=== PATIENT | male | born 1960 | race Caucasian/White ===

== ENCOUNTER 2017-01-20 03:02 | Inpatient (IN) | payer OTHER ==
[~2017-01-20] VITALS: Ht 175.3 cm; Wt 89.7 kg
[2017-01-20 03:55] LABS: EOSINOPHIL (%) 0.4 % (0-5); HEMATOCRIT 50.3 % (38.0-50.0); IMMATURE GRANULOCYTE (%) 0.4 % (0.0-0.7); INSTRUMENT ABS NEUTROPHIL CT 7.2 K/uL; LYMPHOCYTE COUNT 1.5 K/uL (1.0-2.8); MCH 31.1 PG (29.0-34.0); MCHC 34.6 G/DL (30.0-36.0); MONOCYTE (%) 5.5 % (3-12); MONOCYTE COUNT 0.5 K/uL (0-0.8); NEUTROPHIL (%) 77.7 % (45-76); NEUTROPHIL COUNT 7.2 K/uL (1.8-6.4); PLATELET COUNT 235 K/uL (156-360); RBC DIS.WIDTH-CV 13.1 % (11.8-14.6); RBC DIS.WIDTH-SD 43.8 % (39-53); RED BLOOD COUNT 5.59 M/uL (4.00-5.50); WHITE BLOOD COUNT 9.3 K/uL (4.1-10.2)
[2017-01-20 04:05] LABS: CHLORIDE 101 mEq/L (99-109); POTASSIUM 3.8 mEq/L (3.7-5.4); SODIUM 141 mEq/L (136-147)
[2017-01-20 04:08] LABS: GLUCOSE 149 mg/dL (70-99)
[2017-01-20 04:09] LABS: ANION GAP 11 MEQ/L (2-14)
[2017-01-20 04:10] LABS: TOTAL BILIRUBIN 2.2 mg/dL (0.0-1.0)
[2017-01-20 04:11] LABS: ALKALINE PHOSPHATASE 149 IU/L (3-129)
[2017-01-20 04:12] LABS: GFR ESTIMATE (CALCULATED) > 59 mL/min/
[2017-01-20 04:13] LABS: UREA NITROGEN (BUN) 17 mg/dL (9-23)
[2017-01-20 04:15] LABS: LIPASE 21 U/L (1.0-51.0); TROP-I INTERPRETATION NEGATIVE; TROPONIN-I < 0.01 ng/mL (0.0-0.30)
[2017-01-20 07:41] VITALS: BP 130/75
[2017-01-20] MEDS ORDERED: CLONIDINE HCL0.2 MG PO (11:03)
[2017-01-20] MEDS ORDERED: ZESTRIL40 MG PO (11:04)
[2017-01-20] MEDS ORDERED: LOPRESSOR50 MG PO (11:04)
[2017-01-20] MEDS ORDERED: GABAPENTIN800 MG PO (11:05)
[2017-01-20] MEDS ORDERED: HYDROCHLOROTHIA25 MG PO (11:05)
[2017-01-20] MEDS ORDERED: SERTRALINE HCL50 MG PO (11:06)
[2017-01-20] MEDS ORDERED: CYMBALTA60 MG PO (11:06)
[2017-01-20] MEDS ORDERED: GABAPENTIN100 MG PO (11:06)
[2017-01-20] MEDS ORDERED: ATORVASTATIN CA40 MG PO (11:06)
[2017-01-20 11:48] VITALS: BP 140/88
[2017-01-20 12:23] LABS: ADD MIUA? NO; BILIRUBIN NEGATIVE; BLOOD NEGATIVE; COLOR YELLOW ((YELLOW)); GLUCOSE (STRIP) NEGATIVE; KETONES NEGATIVE; LEUKOCYTES NEGATIVE; NITRITE NEGATIVE; PROTEIN (STRIP) NEGATIVE; SPECIFIC GRAVITY 1.023 (1.000-1.030); UCUL ADDED? NO
[2017-01-20 16:36] VITALS: BP 158/84; BP 166/98
[2017-01-20 19:21] VITALS: BP 176/92
[2017-01-20 21:26] VITALS: BP 142/78
[2017-01-21 00:12] VITALS: BP 147/64
[2017-01-21 04:22] VITALS: BP 169/77
[2017-01-21 06:28] LABS: EOSINOPHIL (%) 0.1 % (0-5); HEMATOCRIT 46.7 % (38.0-50.0); IMMATURE GRANULOCYTE (%) 0.4 % (0.0-0.7); IMMATURE GRANULOCYTE COUNT 0.1 K/uL; INSTRUMENT ABS NEUTROPHIL CT 10.3 K/uL; LYMPHOCYTE COUNT 1.1 K/uL (1.0-2.8); MCH 32.2 PG (29.0-34.0); MCV 89.6 FL (86-99); MEAN PLAT.VOLUME 10.7 uM^3 (9.0-12.4); MONOCYTE (%) 4.5 % (3-12); MONOCYTE COUNT 0.5 K/uL (0-0.8); NEUTROPHIL (%) 85.9 % (45-76); NEUTROPHIL COUNT 10.3 K/uL (1.8-6.4); PLATELET COUNT 222 K/uL (156-360); RBC DIS.WIDTH-CV 13.2 % (11.8-14.6); RBC DIS.WIDTH-SD 43.1 % (39-53); RED BLOOD COUNT 5.21 M/uL (4.00-5.50)
[2017-01-21 06:47] LABS: ANION GAP 10 MEQ/L (2-14); CHLORIDE 107 MEQ/L (99-109); POTASSIUM 3.6 MEQ/L (3.7-5.4); SAMPLE HEMOLYSIS CHECK 0; SAMPLE ICTERIC CHECK 1; SAMPLE LIPEMIA CHECK 0; SODIUM 140 MEQ/L (136-147)
[2017-01-21 06:53] LABS: ALKALINE PHOSPHATASE 169 IU/L (3-129); GFR ESTIMATE (CALCULATED) > 59 mL/min/; GLUCOSE 106 mg/dL (70-99); UREA NITROGEN (BUN) 10 mg/dL (9-23)
[2017-01-21 08:00] VITALS: BP 150/75
[2017-01-21 16:05] VITALS: BP 160/85
[2017-01-21 16:34] VITALS: BP 188/93
[2017-01-21 16:58] VITALS: BP 176/90
[2017-01-21 17:28] LABS: DIRECT BILIRUBIN 2.2 mg/dL (0.0-0.3)
[2017-01-21 17:33] LABS: LIPASE 25 U/L (1.0-51.0)
[2017-01-21 18:11] LABS: ALKALINE PHOSPHATASE 165 IU/L (3-129)
[2017-01-21 18:13] LABS: TOTAL BILIRUBIN 4.2 mg/dL (0.0-1.0)
[2017-01-21 18:14] LABS: DIRECT BILIRUBIN 3.1 mg/dL (0.0-0.3)
[2017-01-21 18:15] LABS: LIPASE 36 U/L (1.0-51.0)
[2017-01-22 00:36] VITALS: BP 169/77
[2017-01-22 06:47] LABS: HEMATOCRIT 46.6 % (38.0-50.0); MCH 30.7 PG (29.0-34.0); MCHC 33.7 G/DL (30.0-36.0); MEAN PLAT.VOLUME 10.5 uM^3 (9.0-12.4); PLATELET COUNT 203 K/uL (156-360); RBC DIS.WIDTH-CV 13.7 % (11.8-14.6); RBC DIS.WIDTH-SD 46.5 % (39-53); RED BLOOD COUNT 5.12 M/uL (4.00-5.50); WHITE BLOOD COUNT 7.8 K/uL (4.1-10.2)
[2017-01-22 07:11] LABS: ALKALINE PHOSPHATASE 131 IU/L (3-129); AMYLASE 25 IU/L (1-118); ANION GAP 8 MEQ/L (2-14); CHLORIDE 109 MEQ/L (99-109); GFR ESTIMATE (CALCULATED) > 59 mL/min/; GLUCOSE 87 mg/dL (70-99); LIPASE 13 U/L (1.0-51.0); POTASSIUM 4.2 MEQ/L (3.7-5.4); SAMPLE HEMOLYSIS CHECK 2; SAMPLE ICTERIC CHECK 1; SAMPLE LIPEMIA CHECK 0; SODIUM 144 MEQ/L (136-147); TOTAL BILIRUBIN 4.4 MG/DL (0.0-1.0); UREA NITROGEN (BUN) 10 mg/dL (9-23)
[2017-01-22 08:02] LABS: DIRECT BILIRUBIN 1.7 mg/dL (0.0-0.3)
[2017-01-22 08:31] VITALS: BP 168/84
[2017-01-22 10:32] LABS: INTER. NORMALIZED RATIO 1.1
[2017-01-22 15:15] VITALS: BP 170/90
[2017-01-22] MEDS ORDERED: NEURONTIN100 MG PO (15:52)
[2017-01-23 00:03] VITALS: BP 110/73
[2017-01-23 06:29] LABS: HEMATOCRIT 48.3 % (38.0-50.0); MCH 31.9 PG (29.0-34.0); MCV 91.1 FL (86-99); MEAN PLAT.VOLUME 9.9 uM^3 (9.0-12.4); PLATELET COUNT 188 K/uL (156-360); RBC DIS.WIDTH-CV 13.7 % (11.8-14.6); RBC DIS.WIDTH-SD 46.2 % (39-53); WHITE BLOOD COUNT 7.2 K/uL (4.1-10.2)
[2017-01-23 06:49] LABS: ANION GAP 8 MEQ/L (2-14); CHLORIDE 106 MEQ/L (99-109); DIRECT BILIRUBIN 2.8 mg/dL (0.0-0.3); POTASSIUM 3.8 MEQ/L (3.7-5.4); SAMPLE HEMOLYSIS CHECK 0; SAMPLE ICTERIC CHECK 1; SAMPLE LIPEMIA CHECK 0; SODIUM 141 MEQ/L (136-147)
[2017-01-23 06:55] LABS: ALKALINE PHOSPHATASE 150 IU/L (3-129); GFR ESTIMATE (CALCULATED) > 59 mL/min/; GLUCOSE 94 mg/dL (70-99); UREA NITROGEN (BUN) 10 mg/dL (9-23)
[2017-01-23 07:15] VITALS: BP 136/86
[2017-01-23 11:42] VITALS: BP 113/76
[2017-01-23 16:36] VITALS: BP 118/65
[2017-01-23 23:35] VITALS: BP 112/75
[2017-01-24 05:20] LABS: HEMATOCRIT 49.4 % (38.0-50.0); MCH 30.7 PG (29.0-34.0); MCHC 34.2 G/DL (30.0-36.0); MCV 89.8 FL (86-99); PLATELET COUNT 200 K/uL (156-360); RBC DIS.WIDTH-CV 13.2 % (11.8-14.6); RBC DIS.WIDTH-SD 43.2 % (39-53); WHITE BLOOD COUNT 7.3 K/uL (4.1-10.2)
[2017-01-24 05:39] LABS: ALKALINE PHOSPHATASE 142 IU/L (3-129); ANION GAP 9 MEQ/L (2-14); CHLORIDE 104 MEQ/L (99-109); GFR ESTIMATE (CALCULATED) > 59 mL/min/; GLUCOSE 84 mg/dL (70-99); POTASSIUM 3.8 MEQ/L (3.7-5.4); SAMPLE HEMOLYSIS CHECK 0; SAMPLE ICTERIC CHECK 1; SAMPLE LIPEMIA CHECK 0; SODIUM 142 MEQ/L (136-147); UREA NITROGEN (BUN) 16 mg/dL (9-23)
[2017-01-24 05:41] LABS: TOTAL BILIRUBIN 3.3 MG/DL (0.0-1.0)
[2017-01-24 08:00] VITALS: BP 128/90
[2017-01-24 15:42] VITALS: BP 128/80
[2017-01-24 21:01] VITALS: BP 136/78
[2017-01-24 23:29] VITALS: BP 121/69
[2017-01-25 06:11] LABS: HEMATOCRIT 48.8 % (38.0-50.0); MCH 31.7 PG (29.0-34.0); MCHC 35.2 G/DL (30.0-36.0); MCV 89.9 FL (86-99); MEAN PLAT.VOLUME 10.2 uM^3 (9.0-12.4); PLATELET COUNT 196 K/uL (156-360); RBC DIS.WIDTH-CV 13.3 % (11.8-14.6); RBC DIS.WIDTH-SD 43.4 % (39-53); RED BLOOD COUNT 5.43 M/uL (4.00-5.50); WHITE BLOOD COUNT 6.7 K/uL (4.1-10.2)
[2017-01-25 06:34] LABS: ALKALINE PHOSPHATASE 160 IU/L (3-129); ANION GAP 9 MEQ/L (2-14); CHLORIDE 105 MEQ/L (99-109); GFR ESTIMATE (CALCULATED) > 59 mL/min/; GLUCOSE 90 mg/dL (70-99); POTASSIUM 3.8 MEQ/L (3.7-5.4); SAMPLE HEMOLYSIS CHECK 0; SAMPLE ICTERIC CHECK 0; SAMPLE LIPEMIA CHECK 0; SODIUM 140 MEQ/L (136-147); UREA NITROGEN (BUN) 17 mg/dL (9-23)
[2017-01-25 06:36] LABS: TOTAL BILIRUBIN 2.2 MG/DL (0.0-1.0)
[2017-01-25 08:16] VITALS: BP 152/83
[2017-01-25] MEDS ORDERED: AUGMENTIN875 MG PO (14:08)
[2017-01-25] MEDS ORDERED: TRAMADOL HCL50 MG PO (14:08)
[2017-01-25] MEDS ORDERED: AMLODIPINE BESYL5 MG PO (14:08)
== END 2017-01-25 15:23 | disposition home or self-care (01) | DRG 445 ==
LOC: EME 03:02 → 3EAST 05:31 → EDOF 05:31 → ENRESERV 05:31 → 3EAST 07:06
PROVIDERS: Emergency Medicine; Hospitalist; Internal Medicine; Surgery
DX: K80.51 Calculus of bile duct without cholangitis or cholecystitis with obstruction (principal); A69.22 Other neurologic disorders in Lyme disease; I69.351 Hemiplegia and hemiparesis following cerebral infarction affecting right dominant side; K76.0 Fatty (change of) liver, not elsewhere classified; R74.0 Nonspecific elevation of levels of transaminase and lactic acid dehydrogenase [LDH]; E78.5 Hyperlipidemia, unspecified; I10 Essential (primary) hypertension; F32.9 Major depressive disorder, single episode, unspecified; I69.320 Aphasia following cerebral infarction; I69.392 Facial weakness following cerebral infarction; Z86.19 Personal history of other infectious and parasitic diseases; Z82.49 Family history of ischemic heart disease and other diseases of the circulatory system
CPT/HCPCS: 70450; 71020; 74177; 74181; 74330; 76705; 80048; 80053; 80076; 81003; 82150; 82248; 83690; 84484; 85025; 85027; 85610; 85730; 87081; 93005; 99281; 99285; C1757; C1769; J1650; J2250; J2270; J2405; J2543; J3010; J7030; J7050; S0028